=== PATIENT | female | born 1935 | race Caucasian/White ===

== ENCOUNTER → 2018-02-21 | Outpatient (CLI) | payer MEDICARE, MEDICAID ==
[~2018-02-21] MED LIST: AMLO-99 PO; LEVO75TA73 PO; PNEU0.5D3 IM; VARI50KI IM
[2018-02-21 16:46] LABS: PLATELET COUNT, AUTOMATED 283 K/uL (150-450)
== END ==
LOC: LAB 16:27
PROVIDERS: ATTEND Emergency Medicine
DX: E03.9 Hypothyroidism, unspecified (principal); I10 Essential (primary) hypertension; G62.9 Polyneuropathy, unspecified
CPT/HCPCS: 36415; 82040; 82247; 82274; 82310; 82374; 82435; 82565; 82607; 82947; 84075; 84132; 84155; 84295; 84443; 84450; 84460; 84520; 85025

== ENCOUNTER → 2018-08-09 | Outpatient (CLI) | payer MEDICARE, MEDICAID ==
[~2018-08-09] MED LIST changes: +AMLO-127 PO; -AMLO-99 PO; +CYCL10TA29 PO; +HYDR-385 PO
[2018-08-09 17:04] LABS: PLATELET COUNT, AUTOMATED 320 K/uL (150-450)
== END ==
LOC: LAB 16:40
PROVIDERS: ATTEND Emergency Medicine
DX: E53.8 Deficiency of other specified B group vitamins (principal); R53.83 Other fatigue
CPT/HCPCS: 36415; 82040; 82247; 82310; 82374; 82435; 82565; 82607; 82947; 84075; 84132; 84155; 84295; 84443; 84450; 84460; 84520; 85025

== ENCOUNTER → 2019-01-17 | Outpatient (CLI) | payer MEDICARE, MEDICAID ==
[~2019-01-17] MED LIST changes: +CHOL100052 PO; +CYAN100088 PO; +CYAN20004 PO; +LIDO1ADH TP
[2019-01-17 10:01] LABS: PLATELET COUNT, AUTOMATED 288 K/uL (150-450)
--- NOTE | 2019-01-17 13:54 | RADIOLOGY IMAGING REPORT ---
FACILITY: [facility] - [place] PATIENT NAME: Krystyna Javed : 1935 MR: [id number] V: [id number] EXAM DATE: ORDERING PHYSICIAN: DEMETRA SANTOS TECHNOLOGIST: Location: [facility] Patient: Krystyna Javed : 1935 Visit/Account:[id number] Date of Sevice: 01/17/2019 Exam type: RIBS LEFT History: Left posterior rib pain, no known trauma Comparison: None. Findings: Three views were submitted there is no gross evidence of acute left rib fracture. No lytic or blasti c bone lesions identified. There is linear stranding left lung base which may represent scarring juventino justin atelectasis. There is incidental calcification of the mitral annulus. Also incidentally noted i s a gentle S-shaped scoliosis of the thoracal lumbar spine IMPRESSION: 1. No radiographic abnormality left ribs are seen Linear stranding left lung base consistent with scarring versus platelike atelectasis Report Dictated By: Alma Rosa Sethi MD at 01/17/2019 1:46 PM Report E-Signed By: Alma Rosa Sethi MD at 01/17/2019 1:48 PM WSN:[email or web address]
--- NOTE | 2019-01-17 13:57 | RADIOLOGY IMAGING REPORT ---
FACILITY: [facility] - [place] PATIENT NAME: Krystyna Javed : 1935 MR: [id number] V: [id number] EXAM DATE: ORDERING PHYSICIAN: DEMETRA SANTOS TECHNOLOGIST: Location: [facility] - [place] Patient: Krystyna Javed : 1935 Visit/Account:[id number] Date of Sevice: 01/17/2019 DEXA Scan Clinical history: Asymptomatic postmenopausal estrogen deficiency. Comparison: None available. LUMBAR SPINE: The bone mineral density (BMD) measured from L1-L4 correlates with a Z-score 2.5 and a T-score of 0.7 which is Normal as defined by the World Health Organization. The corresponding risk of fracture in the lumbar spine is Not increased compared with a young adult reference population. HIP: Bone mineral density (BMD) measured in the Left total hip region correlates with a Z-score by 0.3 and a T-score of -2.4 which is osteopenia as defined by the World Health Organization. The correspondin g risk of fracture in the hip is 46 times increased compared with a young adult reference population. T score left femoral neck -2.9 Bone mineral density (BMD) measured in the Femoral Neck region measures 0.630 g/cm2. Impression: 1. Lumbar spine: Normal. 2. Left Hip: Osteopenia. 3. Femoral Neck: Bone Mineral Density is 0.630 g/cm2 The next DEXA scan of this patient should include the following sites: L1-L4 and the left hip. FRAX? WHO Fracture Risk Assessment Tool link: <http://www.shef.ac.uk/FRAX/tool.jsp?locationValue=9> PLEASE NOTE: 1) The World Health Organization defines low BMD as follows: T-score Normal > -1 Osteopenia < -1 and > -2.5 Osteoporosis < -2.5 without fractures Established osteoporosis < -2.5 with fractures 2) In general, you may wish to consider: Diagnosis Treatment Follow-up DEXA Normal BMD Prevention 2-3 years Osteopenia Prevention/therapy 1-2 years Osteoporosis Therapy Yearly 3) Fracture risk estimated from the T-score is more accurate for vertebral fractures (often spontane ous) than for hip fractures. Report Dictated By: Alma Rosa Sethi MD at 01/17/2019 1:49 PM Report E-Signed By: Alma Rosa Sethi MD at 01/17/2019 1:50 PM WSN:[email or web address]
== END ==
LOC: LAB 09:31
PROVIDERS: ATTEND Emergency Medicine
DX: M85.80 Other specified disorders of bone density and structure, unspecified site (principal); E03.9 Hypothyroidism, unspecified; M54.9 Dorsalgia, unspecified; I10 Essential (primary) hypertension; Z78.0 Asymptomatic menopausal state
CPT/HCPCS: 36415; 71100; 77080; 82040; 82247; 82306; 82310; 82374; 82435; 82565; 82947; 83970; 84075; 84132; 84155; 84295; 84443; 84450; 84460; 84520; 85025; 86140